=== PATIENT | male | born 1955 | race Caucasian/White ===

== ENCOUNTER 2016-11-12 12:26 | Emergency (ER) | payer OTHER ==
[2016-11-12 12:31] VITALS: BP 121/73; PULSE 69; TEMP 98.7; BMI 24.3
[2016-11-12] MEDS ORDERED: KETOROLAC TROMETHAMINE 60 MG/2 ML VIAL IM ONE (13:38)
[2016-11-12] MEDS ORDERED: CYCLOBENZAPRINE HCL 10 MG TABLET (FP) PO ONE (13:38)
[2016-11-12] MEDS ORDERED: KETOROLAC TROMETHAMINE 60 MG/2 ML VIAL ONE (13:40)
[2016-11-12] MEDS ORDERED: CYCLOBENZAPRINE HCL 10 MG TABLET (FP) ONE (13:40)
--- NOTE | 2016-11-12 13:52 | PDOC ---
History of Present Illness - General Chief Complaint: Back Pain Stated Complaint: LOWER BACK PAIN Time Seen by Provider: 11/12/16 13:04 History Source: Patient - History of Present Illness Occurred: reports: other Severity: reports: moderate Pain Location: reports: back Method of Injury: Yes: other Past History - Past Medical History Allergies/Adverse Reactions: Allergies Allergy/AdvReac Type Severity Reaction Status Date / Time No Known Allergies Allergy Verified 11/12/16 12:29 Home Medications: Ambulatory Orders Cyclobenzaprine HCl [Flexeril -] 10 mg PO TID #30 tablet 11/12/16 Ibuprofen [Motrin -] 800 mg PO Q6H #30 tablet 11/12/16 Other medical history: DENIES. - Psycho/Social/Smoking Cessation Hx Anxiety: No Suicidal Ideation: No Smoking History: Never smoked Hx Alcohol Use: No Drug/Substance Use Hx: No Substance Use Type: None Review of Systems - Review of Systems Constitutional: No: Chills, Fever Musculoskeletal: Yes: Muscle Pain Neurological: No: Numbness, Tingling, Weakness *Physical Exam - Vital Signs Last Vital Signs Temp Pulse Resp BP Pulse Ox 98.7 F 69 18 121/73 98 11/12/16 12:28 11/12/16 12:28 11/12/16 12:28 11/12/16 12:28 11/12/16 12:28 - Physical Exam General Appearance: Yes: Appropriately Dressed. No: Apparent Distress HEENT: positive: Normal Voice Neck: positive: Supple Respiratory/Chest: negative: Respiratory Distress Gastrointestinal/Abdominal: positive: Soft. negative: Tender Musculoskeletal: positive: Vertebral Tenderness (to R lower back). negative: CVA Tenderness Extremity: positive: Normal Inspection Integumentary: positive: Dry, Warm Neurologic: positive: Fully Oriented, Alert, Normal Mood/Affect Medical Decision Making - Medical Decision Making 11/12/16 13:46 61-year-old male, denies any significant history, here with back pain. Patient reports right lower back pain 4 days that started shortly after heavy lifting at work. States pain improved initially but then re-occurred and worsened last night. Taking nsaid at home with some relief. No radiation of pain, lower extremity weakness, saddle anesthesia, bowel or bladder incontinence.Denies dysuria, nausea, vomiting, fever or chills. No history of similar back pain in the past. Patient well-appearing and stable with reproducible tenderness to right lower back with negative straight leg raise and able to bear weight in ED. No red flags at this time. Pain m/l muscular in etiology. Will discharge with pain control 11/12/16 14:10 Pt reports relief w/ meds. Requesting discharge home *DC/Admit/Observation/Transfer Diagnosis at time of Disposition: Back pain Qualifiers: Back pain location: low back pain Chronicity: acute Back pain laterality: right Sciatica presence: without sciatica Qualified Code(s): M54.5 - Low back pain - Discharge Dispostion Disposition: HOME Condition at time of disposition: Improved - Prescriptions Prescriptions: Cyclobenzaprine HCl [Flexeril -] 10 mg PO TID #30 tablet Ibuprofen [Motrin -] 800 mg PO Q6H #30 tablet - Referrals Referrals: STAFF,NOT ON [Primary Care Provider] - - Patient Instructions Printed Discharge Instructions: Low Back Pain Additional Instructions: Take medications as needed for pain. If pain persists, follow up with your PMD
== END 2016-11-12 14:15 | disposition home or self-care (01) ==
LOC: JERFT 12:26
PROC: 3E0233Z Introduction of Anti-inflammatory into Muscle, Percutaneous Approach (ICD-10-PCS; principal; 2016-11-12)
DX: M54.5 Low back pain (principal); X50.0XXA Overexertion from strenuous movement or load, initial encounter; X50.9XXA Other and unspecified overexertion or strenuous movements or postures, initial encounter; Y93.89 Activity, other specified; Y92.89 Other specified places as the place of occurrence of the external cause; Y99.0 Civilian activity done for income or pay
CPT/HCPCS: 96372; 99281-25

== ENCOUNTER 2017-10-09 16:08 | Emergency (ER) | payer SELFPAY ==
[2017-10-09 16:13] VITALS: BP 138/83; PULSE 69; TEMP 98.2; BMI 24.9
[2017-10-09] MEDS ORDERED: KETOROLAC TROMETHAMINE 30 MG/1 ML VIAL IM ONE (16:15)
--- NOTE | 2017-10-09 16:15 | PDOC ---
Rapid Medical Evaluation Time Seen by Provider: 10/09/17 16:09 Medical Evaluation: Allergies Allergy/AdvReac Type Severity Reaction Status Date / Time No Known Allergies Allergy Verified 11/12/16 12:29 10/09/17 16:12 I have performed a brief in-person evaluation of this patient. This patient presents with a chief complaint of: lower back pain since Monday. Patient reports pain in mid lower back since heavy lifting at work in Monday. Pertinent physical exam findings: NAD, unlabored breathing lungs clear bilaterally heart s1s2 no mid spinal tenderness, +tenderness in left lumbar region I have ordered the following: analgesia This patient will proceed to the ED for further evaluation 10/09/17 21:22 Discharge Disposition - Diagnosis Back pain - Discharge Dispostion Disposition: HOME Condition at time of disposition: Improved - Prescriptions Prescriptions: Cyclobenzaprine HCl [Flexeril -] 10 mg PO TID #9 tablet Ibuprofen [Motrin -] 600 mg PO QID #28 tablet - Referrals Referrals: Basil Loyd MD [Primary Care Provider] - - Patient Instructions Printed Discharge Instructions: DI for Low Back Pain Additional Instructions: Take medications as directed and follow-up with your doctor if you continue to have back pain - Post Discharge Activity Work/School Note: Back to Work
[2017-10-09] MEDS ORDERED: KETOROLAC TROMETHAMINE 60 MG/2 ML VIAL IM ONE (16:46)
[2017-10-09] MEDS ORDERED: CYCLOBENZAPRINE HCL 10 MG TABLET (FP) PO ONE (16:46)
[2017-10-09] MEDS ORDERED: KETOROLAC TROMETHAMINE 60 MG/2 ML VIAL ONE (16:50)
[2017-10-09] MEDS ORDERED: CYCLOBENZAPRINE HCL 10 MG TABLET (FP) ONE (16:50)
--- NOTE | 2017-10-09 16:51 | PDOC ---
History of Present Illness - General Chief Complaint: Back Pain Stated Complaint: BACK PAIN Time Seen by Provider: 10/09/17 16:09 - History of Present Illness Occurred: reports: other Severity: reports: severe Past History - Past Medical History Allergies/Adverse Reactions: Allergies Allergy/AdvReac Type Severity Reaction Status Date / Time No Known Allergies Allergy Verified 10/09/17 16:13 Home Medications: Ambulatory Orders Cyclobenzaprine HCl [Flexeril -] 10 mg PO TID #9 tablet 10/09/17 Ibuprofen [Motrin -] 600 mg PO QID #28 tablet 10/09/17 COPD: No Diabetes: Yes - Suicide/Smoking/Psychosocial Hx Smoking History: Never smoked Information on smoking cessation initiated: No Hx Alcohol Use: No Drug/Substance Use Hx: No Substance Use Type: None Review of Systems - Review of Systems Constitutional: No: Chills, Unexplained wgt Loss Musculoskeletal: Yes: Back Pain. No: Muscle Weakness Neurological: No: Numbness, Tingling, Weakness *Physical Exam - Vital Signs Last Vital Signs Temp Pulse Resp BP Pulse Ox 98.2 F 69 19 138/83 98 10/09/17 16:11 10/09/17 16:11 10/09/17 16:11 10/09/17 16:11 10/09/17 16:11 - Physical Exam General Appearance: Yes: Appropriately Dressed, Mild Distress HEENT: positive: Normal Voice Neck: positive: Supple Respiratory/Chest: negative: Respiratory Distress Gastrointestinal/Abdominal: positive: Soft. negative: Tender Musculoskeletal: positive: Vertebral Tenderness (to mid LS spine), Other. negative: CVA Tenderness Integumentary: positive: Dry, Warm Neurologic: positive: Fully Oriented, Alert Medical Decision Making - Medical Decision Making 10/09/17 16:47 61-year-old male history of diabetes, here with lower back pain. Patient reports non-radiating, severe mid lower back pain that started Monday but has gotten worse. States pain started after lifting something heavy at work. Taking ibuprofen with no relief. No lower extremity weakness, sensory changes, bowel/bladder incontinence or saddle anesthesia. Denies dysuria, hematuria, nausea or vomiting. Patient states he's had back pain in the past but not this severe. See exam LBP M/l MSK No red flags at this time, i.e cauda equina, infxn -pain control in ED and reassess 10/09/17 17:16 Pt reports significant improvement of pain after meds. Will discharge with prescription and have patient follow up with PMD if he continues to have back pain *DC/Admit/Observation/Transfer Diagnosis at time of Disposition: Back pain Qualifiers: Back pain location: low back pain Chronicity: acute Back pain laterality: bilateral Sciatica presence: without sciatica Qualified Code(s): M54.5 - Low back pain - Discharge Dispostion Disposition: HOME Condition at time of disposition: Improved - Prescriptions Prescriptions: Cyclobenzaprine HCl [Flexeril -] 10 mg PO TID #9 tablet Ibuprofen [Motrin -] 600 mg PO QID #28 tablet - Referrals Referrals: Basil Loyd MD [Primary Care Provider] - - Patient Instructions Printed Discharge Instructions: DI for Low Back Pain Additional Instructions: Take medications as directed and follow-up with your doctor if you continue to have back pain - Post Discharge Activity Forms/Work/School Notes: Back to Work
== END 2017-10-09 17:19 | disposition home or self-care (01) ==
LOC: JERFT 16:08
PROC: 3E0233Z Introduction of Anti-inflammatory into Muscle, Percutaneous Approach (ICD-10-PCS; principal; 2017-10-09)
DX: M54.5 Low back pain (principal); X58.XXXA Exposure to other specified factors, initial encounter; Y93.89 Activity, other specified; Y92.9 Unspecified place or not applicable; Y99.0 Civilian activity done for income or pay
CPT/HCPCS: 99281-25